=== PATIENT | male | born 1970 | race Caucasian/White ===

== ENCOUNTER 2017-08-03 05:49 | Day surgery (SDC) | payer BC ==
[2017-08-03] MEDS ORDERED: SUBLIMAZE 100 MCG/2 ML IV ONE (05:50)
[2017-08-03] MEDS ORDERED: Versed 2 MG/2 ML Injection IV ONE (05:50)
[2017-08-03] MEDS ORDERED: DIPRIVAN 200 MG/20 ML IV ONE (05:50)
[2017-08-03] MEDS ORDERED: Lactated Ringers 1,000 ML IV ONE ×2 (05:57→07:54)
[2017-08-03] MEDS ORDERED: Lactated Ringers 1,000 ML IV SCH (06:30)
[2017-08-03 09:03] VITALS: O2SAT 96
[2017-08-03 09:34] VITALS: BP 121/76; PULSE 70
--- NOTE | 2017-08-03 12:47 | OP ---
SURGERY DATE/TIME: 08/03/2017 0800 PREOPERATIVE DIAGNOSIS: Chronic diarrhea. POSTOPERATIVE DIAGNOSIS: Normal colon. PROCEDURE: Colonoscopy with biopsy. SURGEON: Dr. Story. ANESTHESIA: MAC. Medications given by anesthesia department. HISTORY: The patient is a 47 year-old white male patient presenting for colonoscopic evaluation. He reports he has been having problems with diarrhea over the past year including times which he was awaken from sleep. He reports there has been no blood in the stool. The patient is felt the need to have endoscopic evaluation. He was appraised of the risks of the procedure including the risk of perforation, phlebitis, untoward reaction to medication, bleeding and missed lesions. The patient verbalized his understanding and desired to have the procedure performed. DESCRIPTION OF PROCEDURE: The patient was given the medications by the anesthesia department. He had continuous pulse oximetry, ECG monitoring, intermittent blood pressure monitoring and tidal CO2 monitoring during the examination. He was placed in the left lateral decubitus position. A digital rectal examination was performed and revealed normal anal sphincter tone and no masses. The flexible Olympus pediatric colonoscope was used to intubate the rectum. A view of the colon was developed sequentially to the cecum including a short distance into the terminal ileum. Upon insertion and withdrawal, including a retroflex view in the rectum, no mucosal lesions were encountered. The scope was removed from the patient who tolerated the procedure well and was sent back to OP recovery in good condition. The prep was noted to be fair to good.
== END 2017-08-03 09:35 | disposition home or self-care (01) ==
LOC: SDC 05:49
PROVIDERS: ATTEND Family Medicine
PROC: 0DBP8ZX Excision of Rectum, Via Natural or Artificial Opening Endoscopic, Diagnostic (ICD-10-PCS; principal; 2017-08-03)
PROC: 0DBE8ZX Excision of Large Intestine, Via Natural or Artificial Opening Endoscopic, Diagnostic (ICD-10-PCS; 2017-08-03)
DX: K52.9 Noninfective gastroenteritis and colitis, unspecified (principal); I10 Essential (primary) hypertension; Z87.442 Personal history of urinary calculi
CPT/HCPCS: 00812; 88305; J2250; J2704; J3010

== ENCOUNTER 2020-07-08 05:44 | Emergency (ER) | payer OTHER ==
[2020-07-08] MEDS ORDERED: Sodium Chloride 0.9% 1000 ML 1,000 ML IV STA (05:57)
[2020-07-08] MEDS ORDERED: Pepcid 20 MG VIAL IV ONE ×2 (05:57→06:08)
[2020-07-08] MEDS ORDERED: Zofran 4 MG/2 ML VIAL IV ONE (05:57)
[2020-07-08] MEDS ORDERED: MORPHINE SULFATE 4 MG INJ IV ONE ×2 (05:57→08:17)
[2020-07-08] MEDS ORDERED: BENADRYL 50 MG/ML IV ONE (05:57)
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
[2020-07-08] MEDS ORDERED: BENADRYL 50 MG/ML ONE (06:08)
[2020-07-08] MEDS ORDERED: Zofran 4 MG/2 ML VIAL ONE (06:08)
[2020-07-08] MEDS ORDERED: MORPHINE SULFATE 4 MG INJ ONE ×2 (06:08→08:19)
[2020-07-08] MEDS ORDERED: Sodium Chloride 0.9% 1000 ML 1,000 ML ONE (06:08)
[2020-07-08 06:16] LABS: BASOPHIL % 0.4 % (0.0-0.4); Basophil (Absolute #) 0.04 (0-0.4); Eosinophil % 0.3 % (0.00-5.0); Eosinophil (Absolute #) 0.03 (0-0.5); Hematocrit 34.9 % (42-50); Hemoglobin 11.1 gm/dl (12.5-18.0); Lymphocyte (Absolute #) 0.95 (1.0-4.6); Lymphocytes % 8.8 % (24.0-44.0); Mean Cell Volume 82.1 fl (78-100); Mean Corpuscular Hemoglobin 26.1 pg (26-32); Mean Corpuscular Hgb Concent. 31.8 g/dl (32-36); Monocyte (Absolute #) 0.35 (0.0-1.3); Monocytes % 3.2 % (0.0-12.0); Neutrophil % 87.3 % (36.0-66.0); Platelet Count 515 K/mm3 (150-450); Red Blood Count 4.25 M/mm3 (4.1-5.6); Red Cell Distribution Width 14.1 % (11.5-14.0); White Blood Count 10.8 K/mm3 (4.0-10.5)
[2020-07-08 06:34] LABS: INFLUENZA A NEGATIVE (NEGATIVE); INFLUENZA B NEGATIVE (NEGATIVE)
[2020-07-08 06:40] LABS: ALBUMIN 4.6 g/dL (3.5-5.0); ALKALINE PHOSPHATASE 69 U/L (38-126); AMYLASE 171 U/L (30-110); ANION GAP 12.5 MEQ/L (5-15); BLOOD UREA NITROGEN 18 mg/dL (9-20); CHLORIDE 104 mmol/L (98-107); Calcium 9.9 mg/dL (8.4-10.2); Carbon Dioxide 20 mmol/L (22-30); Creatinine 1 0.76 mg/dL (0.66-1.25); EST GLOMERULAR FILTRATION RATE > 60.0 ML/MIN; Glucose 124 mg/dL (74-106); LIPASE 142 U/L (23-300); Potassium 3.9 mmol/L (3.5-5.1); SGOT/AST 34 U/L (17-59); SGPT/ALT 27 U/L (0-50); SODIUM 133 mmol/L (137-145); Total Protein 7.6 g/dL (6.3-8.2)
[2020-07-08 07:31] VITALS: O2SAT 98
--- NOTE | 2020-07-08 08:45 | XRAY ---
Indication: Cough, abdomen pain, diarrhea, and elevated d-dimer. Multiple contiguous axial images obtained through the chest using 99 cc Isovue 370 contrast and PE protocol. Comparison: None There is adequate opacification of the pulmonary arteries to include the lobar and segmental branches. No pulmonary embolus. Heart is not enlarged. Aorta is normal in course and caliber. No pathologic mediastinal/hilar lymphadenopathy. Lungs are inflated with 1.1 cm left lower lobe calcified granuloma. No suspicious pulmonary mass, infiltrate, or effusion. Bony thorax intact. Limited upper abdomen demonstrates 6 mm hepatic cyst versus hemangioma, 4 mm right mid renal cortical cyst, and 7 mm nonobstructing right renal calculus. Impression: 1. Negative pulmonary embolus. No acute cardiopulmonary abnormalities. 2. Incidental left lower lobe calcified granuloma, tiny hepatic cyst/hemangioma, tiny right renal cyst, and nonobstructing right renal micro-calculus.
[2020-07-08 09:56] VITALS: BP 110/70; PULSE 93
== END 2020-07-08 10:20 | disposition home or self-care (01) ==
LOC: ED 05:44
DX: J84.10 Pulmonary fibrosis, unspecified (principal); K76.89 Other specified diseases of liver; D18.00 Hemangioma unspecified site; N28.1 Cyst of kidney, acquired; N20.0 Calculus of kidney; R19.7 Diarrhea, unspecified; R11.0 Nausea; B34.9 Viral infection, unspecified; D47.3 Essential (hemorrhagic) thrombocythemia; Z79.899 Other long term (current) drug therapy; R10.9 Unspecified abdominal pain
CPT/HCPCS: 36000; 36415; 71260; 80053; 82150; 83605; 83690; 84484; 85025; 85379; 87400; 93005; 93041; 94760; 96360; 96374; 96375; 96376; 99285; U0003; J1200; J2270; J2405

== ENCOUNTER 2020-11-29 10:27 | Emergency (ER) | payer OTHER ==
[2020-11-29] MEDS ORDERED: TORAdol 30 mg Injection IM ONE (10:58)
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
[2020-11-29 11:17] VITALS: BP 134/78; PULSE 78
[2020-11-29] MEDS ORDERED: TORAdol 30 mg Injection ONE (11:19)
--- NOTE | 2020-11-29 11:42 | XRAY ---
Indication: Fifth toe pain following injury. Comparison: September 12, 2015. 3 nonweightbearing views left foot demonstrates new nondisplaced distal 5th phalanx fracture with soft tissue swelling. Stable lateral malleolus orthopedic tacks. No other bony, articular, or soft tissue abnormalities.
[2020-11-29 12:02] VITALS: O2SAT 97
== END 2020-11-29 12:15 | disposition home or self-care (01) ==
LOC: ED 10:27
DX: S92.502A Displaced unspecified fracture of left lesser toe(s), initial encounter for closed fracture (principal); W22.01XA Walked into wall, initial encounter; Y93.89 Activity, other specified; Y92.89 Other specified places as the place of occurrence of the external cause
CPT/HCPCS: 73630; 96372; 99284; J1885

== ENCOUNTER 2021-03-17 10:49 | Observation (INO) | payer OTHER ==
[2021-03-17] MEDS ORDERED: BABY ASPIRIN 81 MG CHEW PO ONE (11:07)
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
[2021-03-17] MEDS ORDERED: BABY ASPIRIN 81 MG CHEW ONE (11:21)
[2021-03-17 11:25] LABS: BASOPHIL % 0.8 % (0.0-0.4); Basophil (Absolute #) 0.05 (0-0.4); Eosinophil % 3.6 % (0.00-5.0); Eosinophil (Absolute #) 0.24 (0-0.5); Hematocrit 40.8 % (42-50); Hemoglobin 13.5 gm/dl (12.5-18.0); Lymphocyte (Absolute #) 1.56 (1.0-4.6); Lymphocytes % 23.6 % (24.0-44.0); Mean Cell Volume 89.1 fl (78-100); Mean Corpuscular Hemoglobin 29.5 pg (26-32); Mean Corpuscular Hgb Concent. 33.1 g/dl (32-36); Mean Platelet Volume 8.6 fl (7.5-11.0); Monocyte (Absolute #) 0.46 (0.0-1.3); Platelet Count 392 K/mm3 (150-450); Red Blood Count 4.58 M/mm3 (4.1-5.6); Red Cell Distribution Width 13.2 % (11.5-14.0); White Blood Count 6.6 K/mm3 (4.0-10.5)
[2021-03-17 11:44] LABS: ALBUMIN 4.4 g/dL (3.5-5.0); ALKALINE PHOSPHATASE 49 U/L (38-126); ANION GAP 12.2 MEQ/L (5-15); BLOOD UREA NITROGEN 13 mg/dL (9-20); CHLORIDE 104 mmol/L (98-107); Calcium 10.3 mg/dL (8.4-10.2); Carbon Dioxide 26 mmol/L (22-30); Creatinine 1 0.71 mg/dL (0.66-1.25); EST GLOMERULAR FILTRATION RATE > 60.0 ML/MIN; Glucose 103 mg/dL (74-106); NT PRO BNP 71.2 pg/mL (0-900); Potassium 4.4 mmol/L (3.5-5.1); SGOT/AST 27 U/L (17-59); SGPT/ALT 20 U/L (0-50); SODIUM 138 mmol/L (137-145); Total Protein 6.6 g/dL (6.3-8.2)
--- NOTE | 2021-03-17 11:46 | XRAY ---
Indication: Chest pain. Comparison: None Portable chest demonstrates normal heart and lungs. Bony thorax intact with partially visualized right humerus orthopedic screws.
[2021-03-17] MEDS ORDERED: MORPHINE SULFATE 2 MG INJ IV PRN (14:43)
[2021-03-17] MEDS ORDERED: TYLENOL 325 MG PO PRN (14:43)
[2021-03-17] MEDS ORDERED: Zofran 4 MG/2 ML VIAL IV PRN (14:43)
[2021-03-17] MEDS ORDERED: DUONEB 0.5-3 MG/3 ml Neb IH PRN (14:43)
[2021-03-17] MEDS ORDERED: ATARAX 25 MG PO PRN (15:46)
[2021-03-17] MEDS ORDERED: ENOXAPARIN SODIUM SQ SCH (16:00)
[2021-03-17] MEDS ORDERED: PROTONIX 40 MG IV IV SCH (16:00)
[2021-03-17] MEDS ORDERED: NICODERM CQ 14 MG TOP SCH (19:00)
[2021-03-18 05:49] LABS: Absolute Neutrophil Ct (ANC) 4.32 (1.4-6.9); BASOPHIL % 0.5 % (0.0-0.4); Basophil (Absolute #) 0.04 (0-0.4); Eosinophil % 4.6 % (0.00-5.0); Eosinophil (Absolute #) 0.35 (0-0.5); Hematocrit 41.4 % (42-50); Hemoglobin 13.5 gm/dl (12.5-18.0); Lymphocyte (Absolute #) 2.21 (1.0-4.6); Lymphocytes % 29.3 % (24.0-44.0); Mean Cell Volume 89.2 fl (78-100); Mean Corpuscular Hemoglobin 29.1 pg (26-32); Mean Corpuscular Hgb Concent. 32.6 g/dl (32-36); Mean Platelet Volume 8.8 fl (7.5-11.0); Monocyte (Absolute #) 0.63 (0.0-1.3); Monocytes % 8.3 % (0.0-12.0); Neutrophil % 57.3 % (36.0-66.0); Platelet Count 361 K/mm3 (150-450); Red Blood Count 4.64 M/mm3 (4.1-5.6); Red Cell Distribution Width 13.1 % (11.5-14.0); White Blood Count 7.6 K/mm3 (4.0-10.5)
[2021-03-18 06:38] LABS: ALBUMIN 4.3 g/dL (3.5-5.0); ALKALINE PHOSPHATASE 52 U/L (38-126); ANION GAP 12.3 MEQ/L (5-15); BLOOD UREA NITROGEN 13 mg/dL (9-20); CHLORIDE 101 mmol/L (98-107); Calcium 10.1 mg/dL (8.4-10.2); Carbon Dioxide 29 mmol/L (22-30); Creatinine 1 0.86 mg/dL (0.66-1.25); EST GLOMERULAR FILTRATION RATE > 60.0 ML/MIN; Glucose 101 mg/dL (74-106); Potassium 4.4 mmol/L (3.5-5.1); SGOT/AST 29 U/L (17-59); SGPT/ALT 21 U/L (0-50); SODIUM 138 mmol/L (137-145); Total Protein 6.9 g/dL (6.3-8.2)
[2021-03-18 07:41] VITALS: BP 120/69; PULSE 61; O2SAT 97
[2021-03-18] MEDS ORDERED: Lotensin 10 MG PO SCH (10:00)
[2021-03-18] MEDS ORDERED: FEOSOL 325 MG PO SCH (10:00)
[2021-03-18] MEDS ORDERED: NON-FORMULARY ITEM (Benazepril Hcl [Lotensin] 20 MG) PO SCH (10:00)
[2021-03-18] MEDS ORDERED: NON-FORMULARY ITEM (Omeprazole Magnesium [Prilosec Otc] 20 MG) PO SCH (10:00)
[2021-03-18] MEDS ORDERED: Protonix 40MG Tablet PO SCH (10:00)
[2021-03-18] MEDS ORDERED: ZOLOFT 50 MG TABLET PO SCH ×2 (10:00)
--- NOTE | 2021-03-20 14:23 | SSS ---
DISCHARGE DIAGNOSIS: 1. CHEST PAIN. CHIEF COMPLAINT: Chest pain. HISTORY OF PRESENT ILLNESS: The patient is a 50 y/o WM patient who presented to the Emergency Room with complaints of intermittent chest pain for the past couple/three days. He became concerned approximately 4 days ago when he left work due to the chest pains. He reports that on Wednesday, he had recurrent episodes of pains and became scared due to his strong family history of heart disease. Presented himself to the Emergency Room with the above complaints and was admitted to the hospital to rule out myocardial infarction. The patient denies any chest discomfort to palpation and he reports it is more of a squeezing type discomfort substernal, lasts for a minute or two, and then resolves. He reported no discomfort in the past several hours during his stay in observation here at the hospital. PAST MEDICAL HISTORY: Otherwise significant for hypertension, gastroesophageal reflux disease, and depression issues. The patient otherwise has had a joint replacement, kidney stones removed, and several plates, pins, and screws in his head, shoulder, ankle, and wrist. HOME MEDICATIONS: He is currently on benazepril 20 mg daily, paroxetine 40 mg daily, Imodium 2 mg tablets PRN for diarrhea, Prilosec 20 mg q d, and Zoloft 100 mg q d. ALLERGIES: THE PATIENT REPORTS ALLERGIES TO [facility]ENER[facility]. PHYSICAL EXAMINATION: VITAL SIGNS ON ADMISSION: Showed his temperature to be 98.1, pulse 96, respiratory rate 20, BP 123/85, O2 saturation was 98%. HEENT: Normocephalic, atraumatic. Pupils equal, round, and reactive to light. Extraocular movements intact. Oropharynx is pink and moist. NECK: Supple without lymphadenopathy, thyromegaly, or JVD. CHEST: Clear to auscultation with good air movement bilaterally. HEART: Regular rate and rhythm. There is no sternal tenderness to palpation. ABDOMEN: Soft. No palpable masses. EXTREMITIES: Without cyanosis, clubbing, or edema. NEURO: The patient is alert and oriented X 3. No focal deficits. LABORATORY DATA: The patient's laboratory studies have revealed multiple troponins, all negative, less than 0.012. His WBC was 6600, his Hgb was 13.5, and platelet count 392,000. He had a d-dimer negative at 347. His glucose 103, BUN 13, creatinine 0.71. Electrolytes were normal. Liver enzymes were normal. NT Pro BNP was normal. COVID-19 test was negative. His rhythm strips had all been sinus rhythm. His 12-lead EKG shows an essentially normal-looking tracing. The patient had a chest x-ray which was normal. ASSESSMENT: 1. PATIENT WITH CHEST PAIN THAT IS INTERMITTENT AND SPASMY IN NATURE. Has ruled out for myocardial infarction and no pain presently. The patient will be discharged home. He will follow-up with his PCP in the next week to consider potential types of cardiac evaluations which might include stress treadmill and potential cardiology consultation.
== END 2021-03-18 08:58 | disposition home or self-care (01) ==
LOC: ED 10:49 → MED SURG 14:39
PROVIDERS: ADMIT Family Medicine; ATTEND Family Medicine
DX: R07.9 Chest pain, unspecified (principal); R42 Dizziness and giddiness; I10 Essential (primary) hypertension; Z79.899 Other long term (current) drug therapy; R06.02 Shortness of breath; Z82.49 Family history of ischemic heart disease and other diseases of the circulatory system; Z20.822 Contact with and (suspected) exposure to COVID-19
CPT/HCPCS: 36000; 36415; 71045; 80053; 83880; 84484; 85025; 85379; 93005; 93041; 93268; 94760; 99285; G0378; U0003; J1650; A9270-GY

== ENCOUNTER 2022-06-07 14:22 | Emergency (ER) | payer OTHER ==
[2022-06-07] MEDS ORDERED: Nitrostat 0.4 MG (ED) SL ONE ×3 (14:23→14:49)
[2022-06-07] MEDS ORDERED: BABY ASPIRIN 81 MG CHEW PO ONE (14:27)
[2022-06-07] MEDS ORDERED: Nitrostat 0.4 MG Tablet SL ONE (14:39)
[2022-06-07] MEDS ORDERED: Zofran 4 MG/2 ML VIAL IV ONE ×2 (14:39→15:52)
[2022-06-07 14:40] LABS: Absolute Neutrophil Ct (ANC) 8.13 x10^3/uL (1.4-6.9); Basophil (Absolute #) 0.06 x10^3/uL (0-0.4); Eosinophil % 1.4 % (0.00-5.0); Eosinophil (Absolute #) 0.15 x10^3/uL (0-0.5); Hematocrit 38.9 % (42-50); Hemoglobin 13.2 g/dL (12.5-18.0); Lymphocyte (Absolute #) 1.47 x10^3/uL (1.0-4.6); Lymphocytes % 14.1 % (24.0-44.0); Mean Cell Volume 86.1 fL (78-100); Mean Corpuscular Hemoglobin 29.2 pg (26-32); Mean Corpuscular Hgb Concent. 33.9 g/dL (32-36); Mean Platelet Volume 8.7 fL (7.5-11.0); Monocyte (Absolute #) 0.61 x10^3/uL (0.0-1.3); Monocytes % 5.8 % (0.0-12.0); Neutrophil % 77.7 % (36.0-66.0); Platelet Count 346 x10^3/uL (150-450); Red Blood Count 4.52 x10^6/uL (4.1-5.6); Red Cell Distribution Width 12.4 % (11.5-14.0); White Blood Count 10.5 x10^3/uL (4.0-10.5)
[2022-06-07] MEDS ORDERED: Zofran 4 MG/2 ML VIAL ONE ×2 (14:41→15:53)
[2022-06-07] MEDS ORDERED: BABY ASPIRIN 81 MG CHEW ONE (14:41)
--- NOTE | 2022-06-07 14:54 | ERPHSYRPT ---
- History of Present Illness Historian: patient Exam Limitations: no limitations Patient Subjective Stated Complaint: C/O chest pain that started a few hours ago while watching football. States it is a "deep tightness" in the center of his chest that does not radiate anywhere. Triage Nursing Assessment: Patient brought back to ED by wheelchair. Patient is anxious, unable to keep body still while in bed. Patient is diaphoretic. Alert and oriented. Does not appear SOB with 02 sats 99% on room air but patient states he feels SOB. GREG MEZA. Physician History: 51 yo wm w mid-sternal chest pain x 2 hours which occurred while watching football. Pain is 8/10 wo radiations. He has nausea/dyspnea wo vomiting/diaphoresis. CAD-NH denied, but he has a h/o HTN/Hyperlipidemia/1ppd smoker. Nothing makes the pain better or worse."Feels like someone sitting on his chest." Timing/Duration: other (2 hours) Activities at Onset: other (Watching football) Quality: other (Sitting on chest) Location: substernal Chest Pain Radiation: no radiation Severity of Pain-Max: severe Severity of Pain-Current: severe Modifying Factors: Improves With: nothing Associated Symptoms: denies symptoms, nausea, shortness of breath Prior Chest Pain/Cardiac Workup: no prior chest pain Nitro Today/Relief: no nitro taken today Aspirin Treatment Today: no aspirin today Allergies/Adverse Reactions: promethazine [From Phenergan] Allergy (Verified 06/07/22 14:25) Hx Tetanus, Diphtheria Vaccination/Date Given: Yes Hx Influenza Vaccination/Date Given: Yes Hx Pneumococcal Vaccination/Date Given: No Immunizations Up to Date: Yes Travel Risk - International Travel Have you traveled outside of the country in past 3 weeks: No - Coronavirus Screening Are you exhibiting any of the following symptoms?: Yes Symptoms: Shortness of Breath Close contact with a COVID-19 positive Pt in past 14-21 Days: No - Vaccine Status Have you recieved a Covid-19 vaccination: No - Review of Systems Constitutional: No Symptoms Eyes: No Symptoms Ears, Nose, & Throat: No Symptoms Respiratory: No Symptoms Cardiac: No Symptoms, Chest Pain Abdominal/Gastrointestinal: No Symptoms, Nausea Genitourinary Symptoms: No Symptoms Musculoskeletal: No Symptoms Skin: No Symptoms Neurological: No Symptoms Psychological: No Symptoms Endocrine: No Symptoms Hematologic/Lymphatic: No Symptoms Immunological/Allergic: No Symptoms - Past Medical History Pertinent Past Medical History: Yes Cardiac History: High Cholesterol, Hypertension Other Medical History: Patient is unable to state what medications he is currently taking but indicates that he knows the medications are for HTN and high cholesterol. - Past Surgical History Past Surgical History: Yes Other Surgical History: Titanium bar in leg, head, should, wrist, ankle - Social History Smoking Status: Current every day smoker How long have you smoked: "too long" Exposure to second hand smoke: No Drug Use: marijuana - Nursing Vital Signs Nursing Vital Signs: Initial Vital Signs Temperature 96.9 F 06/07/22 14:27 Pulse Rate 61 06/07/22 14:27 Respiratory Rate 12 06/07/22 14:27 Blood Pressure 143/95 06/07/22 14:27 O2 Sat by Pulse Oximetry 99 06/07/22 14:27 Pain Scale Pain Intensity 4 Hypertensive - Physical Exam General Appearance: mild distress Eye Exam: PERRL/EOMI, eyes nml inspection Ears, Nose, Throat Exam: normal ENT inspection, TMs normal, pharynx normal, moist mucous membranes Neck Exam: normal inspection, non-tender, supple, full range of motion, No meningismus, No mass, No Brudzinski, No Kernig's Respiratory Exam: normal breath sounds, lungs clear, airway intact Cardiovascular Exam: regular rate/rhythm, normal heart sounds, normal peripheral pulses, capillary refill <2 sec, No murmur Gastrointestinal/Abdomen Exam: soft, normal bowel sounds, No tenderness Back Exam: normal inspection, normal range of motion, No CVA tenderness Extremity Exam: normal inspection, normal range of motion Neurologic Exam: alert, oriented x 3, cooperative, run lead II-XII nml as tested, normal mood/affect, nml cerebellar function, nml station & gait, sensation nml, No motor deficits, No sensory deficit Skin Exam: normal color, warm, dry, No rash Lymphatic Exam: No adenopathy SpO2 Interpretation: normal SpO2: 100 O2 Delivery: Room Air - Course Nursing assessment & vital signs reviewed: Yes EKG Interpreted by Me: RATE (Sinus suzanna/Rate 57/Normal QT-QTc/ST depression 2,3,AVF) - Radiology Exams Chest X-ray Interpretation: Interpreted by me (CXR NAD) - CT Exams Chest CT Interpretation: Tele-radiologist Report (CTA chest neg per T[facility]) Abdomen/Pelvis CT Interpretation: Tele-radiologist Report (CTA of [id number] mucosal folds, other [place] neg) Ordered Tests: Active Orders 24 hr Category Date Time Status EKG-ER Only STAT Care 06/07/22 14:26 Completed IV Insertion STAT Care 06/07/22 14:26 Completed ABDOMEN AND PELVIS W CONTRAST [CT] Stat Exams 06/07/22 17:37 Taken CHEST 1 VIEW (PORTABLE) Stat Exams 06/07/22 14:47 Completed CHEST WITH CONTRAST [CT] Stat Exams 06/07/22 18:13 Taken AMYLASE Stat Lab 06/07/22 17:12 Completed CBC W DIFF Stat Lab 06/07/22 14:37 Completed CMP Stat Lab 06/07/22 14:37 Completed D-DIMER QUANTITATIVE Stat Lab 06/07/22 14:37 Completed LIPASE Stat Lab 06/07/22 17:12 Completed NT PRO BNP Stat Lab 06/07/22 14:37 Completed PROTIME WITH INR Stat Lab 06/07/22 14:37 Completed PTT Stat Lab 06/07/22 14:37 Completed TROPONIN Q4H Lab 06/07/22 14:37 Completed TROPONIN Q4H Lab 06/07/22 17:33 Completed Medication Summary Discontinued Medications Generic Name Dose Route Start Last Admin Trade Name Freq PRN Reason Stop Dose Admin Aspirin 324 mg 06/07/22 14:27 06/07/22 14:42 Aspirin 81 Mg Tab.Chew PO 06/07/22 14:28 324 mg STAT ONE Administration Aspirin Confirm 06/07/22 14:41 Aspirin 81 Mg Tab.Chew Administered 06/07/22 14:42 Dose 324 mg .ROUTE .STK-MED ONE Hydromorphone HCl 1 mg 06/07/22 17:11 06/07/22 17:25 Hydromorphone 1 Mg/1ml Inj 1 Mg/Ml Syringe IV 06/07/22 17:12 1 mg STAT ONE Administration Hydromorphone HCl Confirm 06/07/22 17:25 Hydromorphone 1 Mg/1ml Inj 1 Mg/Ml Syringe Administered 06/07/22 17:26 Dose 1 mg .ROUTE .STK-MED ONE Hydromorphone HCl 1 mg 06/07/22 19:15 06/07/22 19:29 Hydromorphone 1 Mg/1ml Inj 1 Mg/Ml Syringe IV 06/07/22 19:16 1 mg STAT ONE Administration Hydromorphone HCl Confirm 06/07/22 19:28 Hydromorphone 1 Mg/1ml Inj 1 Mg/Ml Syringe Administered 06/07/22 19:29 Dose 1 mg .ROUTE .STK-MED ONE Morphine Sulfate 4 mg 06/07/22 14:57 06/07/22 14:59 Morphine Sulfate 4 Mg/Ml Injection IV 06/07/22 14:58 4 mg STAT ONE Administration Morphine Sulfate Confirm 06/07/22 14:58 Morphine Sulfate 4 Mg/Ml Injection Administered 06/07/22 14:59 Dose 4 mg .ROUTE .STK-MED ONE Morphine Sulfate 4 mg 06/07/22 15:11 06/07/22 15:13 Morphine Sulfate 4 Mg/Ml Injection IV 06/07/22 15:12 4 mg STAT ONE Administration Morphine Sulfate Confirm 06/07/22 15:12 Morphine Sulfate 4 Mg/Ml Injection Administered 06/07/22 15:13 Dose 4 mg .ROUTE .STK-MED ONE Morphine Sulfate 4 mg 06/07/22 15:52 06/07/22 15:55 Morphine Sulfate 4 Mg/Ml Injection IV 06/07/22 15:53 4 mg STAT ONE Administration Morphine Sulfate Confirm 06/07/22 15:54 Morphine Sulfate 4 Mg/Ml Injection Administered 06/07/22 15:55 Dose 4 mg .ROUTE .STK-MED ONE Nitroglycerin 0.4 mg 06/07/22 14:39 06/07/22 14:42 Nitroglycerin 0.4 Mg Tablet Bottle SL 06/07/22 14:40 0.4 mg STAT ONE Administration Nitroglycerin Confirm 06/07/22 14:41 Nitroglycerin 0.4 Mg (Ed) 0.4 Mg Tab.Subl Administered 06/07/22 14:42 Dose 0.4 mg SL .STK-MED ONE Nitroglycerin 0.4 mg 06/07/22 14:49 06/07/22 14:51 Nitroglycerin 0.4 Mg (Ed) 0.4 Mg Tab.Subl SL 06/07/22 14:50 0.4 mg STAT ONE Administration Ondansetron HCl 4 mg 06/07/22 14:39 06/07/22 14:42 Ondansetron Hcl 4 Mg/2 Ml Vial IV 06/07/22 14:40 4 mg STAT ONE Administration Ondansetron HCl Confirm 06/07/22 14:41 Ondansetron Hcl 4 Mg/2 Ml Vial Administered 06/07/22 14:42 Dose 4 mg .ROUTE .STK-MED ONE Ondansetron HCl 4 mg 06/07/22 15:52 06/07/22 15:54 Ondansetron Hcl 4 Mg/2 Ml Vial IV 06/07/22 15:53 4 mg STAT ONE Administration Ondansetron HCl Confirm 06/07/22 15:53 Ondansetron Hcl 4 Mg/2 Ml Vial Administered 06/07/22 15:54 Dose 4 mg .ROUTE .STK-MED ONE Lab/Rad Data: Laboratory Result Diagrams 06/07/22 14:37 06/07/22 14:37 Laboratory Results 06/07/22 06/07/22 06/07/22 Range/Units 17:33 17:12 15:37 WBC (4.0-10.5) x10^3/uL RBC (4.1-5.6) x10^6/uL Hgb (12.5-18.0) g/dL Hct (42-50) % MCV (78-100) fL MCH (26-32) pg MCHC (32-36) g/dL RDW (11.5-14.0) % Plt Count (150-450) x10^3/uL MPV (7.5-11.0) fL Gran % (36.0-66.0) % Immature Gran % (Auto) (0.00-0.4) % Nucleat RBC Rel Count (0.00-0.1) % Eos # (Auto) (0-0.5) x10^3/uL Immature Gran # (Auto) (0.00-0.03) x10^3u/L Absolute Lymphs (auto) (1.0-4.6) x10^3/uL Absolute Monos (auto) (0.0-1.3) x10^3/uL Absolute Nucleated RBC (0.00-0.01) x10^3u/L Lymphocytes % (24.0-44.0) % Monocytes % (0.0-12.0) % Eosinophils % (0.00-5.0) % Basophils % (0.0-0.4) % Absolute Granulocytes (1.4-6.9) x10^3/uL Basophils # (0-0.4) x10^3/uL PT (9.4-12.5) SECONDS INR (0.8-3.0) APTT (25.1-36.5) SECONDS D-Dimer (0.0-0.50) mg/L Sodium (137-145) mmol/L Potassium (3.5-5.1) mmol/L Chloride (98-107) mmol/L Carbon Dioxide (22-30) mmol/L Anion Gap (5-15) MEQ/L BUN (9-20) mg/dL Creatinine (0.66-1.25) mg/dL Estimated GFR ML/MIN Glucose (74-106) mg/dL Calcium (8.4-10.2) mg/dL Total Bilirubin (0.2-1.3) mg/dL AST (17-59) U/L ALT (0-50) U/L Alkaline Phosphatase (38-126) U/L Troponin I < 0.012 (0.000-0.034) ng/mL NT-Pro-B Natriuret Pep (0-900) pg/mL Serum Total Protein (6.3-8.2) g/dL Albumin (3.5-5.0) g/dL Amylase 328 H (30-110) U/L Lipase 86 (23-300) U/L Influenza Type A Ag NEGATIVE (NEGATIVE) Influenza Type B Ag NEGATIVE (NEGATIVE) RSV (PCR) NEGATIVE (Negative) SARS-CoV-2 (PCR) NEGATIVE (NEGATIVE) 06/07/22 06/07/22 06/07/22 Range/Units 14:37 14:37 14:37 WBC (4.0-10.5) x10^3/uL RBC (4.1-5.6) x10^6/uL Hgb (12.5-18.0) g/dL Hct (42-50) % MCV (78-100) fL MCH (26-32) pg MCHC (32-36) g/dL RDW (11.5-14.0) % Plt Count (150-450) x10^3/uL MPV (7.5-11.0) fL Gran % (36.0-66.0) % Immature Gran % (Auto) (0.00-0.4) % Nucleat RBC Rel Count (0.00-0.1) % Eos # (Auto) (0-0.5) x10^3/uL Immature Gran # (Auto) (0.00-0.03) x10^3u/L Absolute Lymphs (auto) (1.0-4.6) x10^3/uL Absolute Monos (auto) (0.0-1.3) x10^3/uL Absolute Nucleated RBC (0.00-0.01) x10^3u/L Lymphocytes % (24.0-44.0) % Monocytes % (0.0-12.0) % Eosinophils % (0.00-5.0) % Basophils % (0.0-0.4) % Absolute Granulocytes (1.4-6.9) x10^3/uL Basophils # (0-0.4) x10^3/uL PT 10.4 (9.4-12.5) SECONDS INR 0.98 (0.8-3.0) APTT 23.1 L (25.1-36.5) SECONDS D-Dimer < 0.19 (0.0-0.50) mg/L Sodium (137-145) mmol/L Potassium (3.5-5.1) mmol/L Chloride (98-107) mmol/L Carbon Dioxide (22-30) mmol/L Anion Gap (5-15) MEQ/L BUN (9-20) mg/dL Creatinine (0.66-1.25) mg/dL Estimated GFR ML/MIN Glucose (74-106) mg/dL Calcium (8.4-10.2) mg/dL Total Bilirubin (0.2-1.3) mg/dL AST (17-59) U/L ALT (0-50) U/L Alkaline Phosphatase (38-126) U/L Troponin I < 0.012 (0.000-0.034) ng/mL NT-Pro-B Natriuret Pep (0-900) pg/mL Serum Total Protein (6.3-8.2) g/dL Albumin (3.5-5.0) g/dL Amylase (30-110) U/L Lipase (23-300) U/L Influenza Type A Ag (NEGATIVE) Influenza Type B Ag (NEGATIVE) RSV (PCR) (Negative) SARS-CoV-2 (PCR) (NEGATIVE) 06/07/22 06/07/22 Range/Units 14:37 14:37 WBC 10.5 (4.0-10.5) x10^3/uL RBC 4.52 (4.1-5.6) x10^6/uL Hgb 13.2 (12.5-18.0) g/dL Hct 38.9 L (42-50) % MCV 86.1 (78-100) fL MCH 29.2 (26-32) pg MCHC 33.9 (32-36) g/dL RDW 12.4 (11.5-14.0) % Plt Count 346 (150-450) x10^3/uL MPV 8.7 (7.5-11.0) fL Gran % 77.7 H (36.0-66.0) % Immature Gran % (Auto) 0.4 (0.00-0.4) % Nucleat RBC Rel Count 0.0 (0.00-0.1) % Eos # (Auto) 0.15 (0-0.5) x10^3/uL Immature Gran # (Auto) 0.04 H (0.00-0.03) x10^3u/L Absolute Lymphs (auto) 1.47 (1.0-4.6) x10^3/uL Absolute Monos (auto) 0.61 (0.0-1.3) x10^3/uL Absolute Nucleated RBC 0.00 (0.00-0.01) x10^3u/L Lymphocytes % 14.1 L (24.0-44.0) % Monocytes % 5.8 (0.0-12.0) % Eosinophils % 1.4 (0.00-5.0) % Basophils % 0.6 (0.0-0.4) % Absolute Granulocytes 8.13 H (1.4-6.9) x10^3/uL Basophils # 0.06 (0-0.4) x10^3/uL PT (9.4-12.5) SECONDS INR (0.8-3.0) APTT (25.1-36.5) SECONDS D-Dimer (0.0-0.50) mg/L Sodium 131 L (137-145) mmol/L Potassium 4.0 (3.5-5.1) mmol/L Chloride 104 (98-107) mmol/L Carbon Dioxide 21 L (22-30) mmol/L Anion Gap 10.3 (5-15) MEQ/L BUN 18 (9-20) mg/dL Creatinine 0.67 (0.66-1.25) mg/dL Estimated GFR > 60.0 ML/MIN Glucose 105 (74-106) mg/dL Calcium 9.8 (8.4-10.2) mg/dL Total Bilirubin 0.80 (0.2-1.3) mg/dL AST 33 (17-59) U/L ALT 26 (0-50) U/L Alkaline Phosphatase 70 (38-126) U/L Troponin I (0.000-0.034) ng/mL NT-Pro-B Natriuret Pep 100 (0-900) pg/mL Serum Total Protein 7.2 (6.3-8.2) g/dL Albumin 4.5 (3.5-5.0) g/dL Amylase (30-110) U/L Lipase (23-300) U/L Influenza Type A Ag (NEGATIVE) Influenza Type B Ag (NEGATIVE) RSV (PCR) (Negative) SARS-CoV-2 (PCR) (NEGATIVE) - Progress Progress: improved Air Movement: good Progress Note: 06/07/22 16:40 ASA 324mg po x1 SL NTG x2 w decrease in pain from 8 to 6 MSO4 4mg IV x 3 w marked improvement in pain 4mg IV Zofran 06/07/22 19:43 1mg IV Dialaudid x2 Pt refuses admit at this time, risks includs NH/ Counseled pt/family regarding: lab results, diagnosis, need for follow-up, rad results - Departure Departure Disposition: Home Clinical Impression: Chest pain Condition: Stable Critical Care Time: Yes Critical Care Time(excluding separately billable procedures): Critical 30-74 mins Referrals: ALONZO GUTIERREZ NP [Primary Care Provider] - Follow up/PCP as directed Instructions: Chest Pain (DC) Additional Instructions: Follow up with your family MD in 1-2 days Return to ER for increasing pain or shortness of breath Start Protonix Prescriptions: PANTOPRAZOLE 40 mg Tablet [Protonix 40MG Tablet] 40 mg PO QAM #30 tab
[2022-06-07 14:56] LABS: INR 0.98 (0.8-3.0); PROTIME 10.4 SECONDS (9.4-12.5); PTT 23.1 SECONDS (25.1-36.5)
[2022-06-07] MEDS ORDERED: MORPHINE SULFATE 4 MG INJ IV ONE ×3 (14:57→15:52)
[2022-06-07] MEDS ORDERED: MORPHINE SULFATE 4 MG INJ ONE ×3 (14:58→15:54)
[2022-06-07 15:52] LABS: ALBUMIN 4.5 g/dL (3.5-5.0); ALKALINE PHOSPHATASE 70 U/L (38-126); ANION GAP 10.3 MEQ/L (5-15); BLOOD UREA NITROGEN 18 mg/dL (9-20); CHLORIDE 104 mmol/L (98-107); Calcium 9.8 mg/dL (8.4-10.2); Carbon Dioxide 21 mmol/L (22-30); Creatinine 1 0.67 mg/dL (0.66-1.25); EST GLOMERULAR FILTRATION RATE > 60.0 ML/MIN; Glucose 105 mg/dL (74-106); NT PRO BNP 100 pg/mL (0-900); SGOT/AST 33 U/L (17-59); SGPT/ALT 26 U/L (0-50); SODIUM 131 mmol/L (137-145); Total Protein 7.2 g/dL (6.3-8.2)
[2022-06-07 16:15] LABS: INFLUENZA A NEGATIVE (NEGATIVE); INFLUENZA B NEGATIVE (NEGATIVE); RESPIRATORY SYNCTIAL VIRUS NEGATIVE (Negative); SARS-CoV-2 Xpert Express NEGATIVE (NEGATIVE)
[2022-06-07] MEDS ORDERED: Hydromorphone 1 mg/ml Injection IV ONE ×2 (17:11→19:15)
[2022-06-07 17:17] LABS: AMYLASE 328 U/L (30-110); LIPASE 86 U/L (23-300)
[2022-06-07] MEDS ORDERED: Hydromorphone 1 mg/ml Injection ONE ×2 (17:25→19:28)
--- NOTE | 2022-06-07 17:59 | XRAY ---
Indication: Chest pain. Comparison: None Portable chest demonstrates normal heart and lungs. Bony thorax intact with partially visualized old right humeral head fracture hardware.
[2022-06-07 19:49] VITALS: BP 128/83; PULSE 54
[2022-06-07 21:12] VITALS: O2SAT 100
--- NOTE | 2022-06-08 08:38 | XRAY ---
Indication: Chest and abdomen pain. Normal d-dimer. Pulmonary embolus versus aneurysm. Multiple contiguous axial images obtained through the chest using 100 cc Isovue 370 contrast and PE protocol. Comparison: None Good opacification pulmonary arteries to include the lobar and segmental branches. No pulmonary embolus. Heart not enlarged. Aorta is normal in course and caliber without aneurysm/dissection. No pathologic mediastinal/hilar lymphadenopathy. Lungs inflated and clear. Bony thorax intact. CT abdomen/pelvis reported separately. Impression: Normal CT chest with contrast exam. Comment: Preliminary interpretation made by [facility]. No critical discrepancy.
--- NOTE | 2022-06-08 08:44 | XRAY ---
Indication: Chest and abdomen pain. Normal d-dimer. Pulmonary embolus versus aneurysm. Multiple contiguous axial images obtained through the abdomen and pelvis using 100 cc Isovue 370 contrast. Comparison: None CT chest reported separately. Noncontrasted stomach decompressed with little intraluminal fluid. There is moderate diffuse gastric wall thickening either incomplete distention versus lymphoma. Doubt Menetrier's or gastritis given little to no intraluminal fluid. Noncontrasted bowel loops appear nonobstructed with normal appendix. No free fluid/air. A few nonobstructing bilateral renal micro-calculi, largest 6 mm and mild diffuse fatty liver. Remaining liver, gallbladder, pancreas, spleen, adrenal glands, kidneys, ureters, bladder, and aorta are unremarkable. No pathologic retroperitoneal lymphadenopathy. Osseous structures intact with incompletely visualized proximal left femur orthopedic hardware. Small fatty bilateral inguinal hernias. Impression: 1. Near empty stomach with moderate diffuse gastric wall thickening, incomplete distention versus lymphoma. 2. Incidental nonobstructing bilateral renal micro-calculi, fatty liver, and fatty bilateral inguinal hernias. 3. Remaining CT abdomen/pelvis with contrast exam is negative. Comment: Preliminary interpretation made by [facility]. No critical discrepancy.
== END 2022-06-07 20:03 | disposition home or self-care (01) ==
LOC: ED 14:22 → MERGE 14:22 → ED 20:03
DX: R07.9 Chest pain, unspecified (principal); R11.0 Nausea; R06.00 Dyspnea, unspecified; I10 Essential (primary) hypertension; E78.5 Hyperlipidemia, unspecified; Z28.310 Unvaccinated for COVID-19; Z72.0 Tobacco use
CPT/HCPCS: 0241U; 36000; 36415; 71045; 71260; 74177; 80053; 82150; 83690; 83880; 84484; 85025; 85379; 85610; 85730; 93005; 96374; 96375; 96376; 99285; 99291; J1170; J2270; J2405; A9270-GY